=== PATIENT | male | born 1985 | race Caucasian/White ===

== ENCOUNTER 2025-01-19 15:48 | Emergency (ER) | payer OTHER, SELFPAY ==
[2025-01-19 15:49] VITALS: BP 137/85; PULSE 103; RESP 18; TEMP 36.6; O2SAT 100; BMI 26.4
--- NOTE | 2025-01-19 15:53 | ED.RN ---
Pt declines IV in triage, states he has syncopal episodes for IV's and blood draws
[2025-01-19] MEDS: DiphenhydrAMINE 50 MG/ML Syringe IV (16:31)
--- NOTE | 2025-01-19 16:31 | EDS_ITS ---
HPI History of Present Illness Chief Complaint: Allergic Reaction Informant: patient Narrative Narrative: Patient is a 39-year-old male with lifelong history of seasonal allergies who has been receiving allergy shots monthly for years. He had an allergy shot toda y and then developed swelling in the back of his throat. He tried hot tea and cough drops with no relief. It feels like it is affected his breathing mildly. He denies any wheezing. Denies any new medications. States he never had a reaction like this before. Does not take any AMIRAH inhibitor's. Denies any recent illnesses. No other complaints or concerns at this time. Denies any lip swelling, rash, abdominal pain, vomiting or diarrhea [facility] Medical History Asthma Home Medications ?Medication ?Instructions ?Recorded ?Last Taken ?Type epinephrine 0.3 mg/0.3 mL 0.3 mg (0.3 mL) IM Q10M PRN PRN 01/19/25 Unknown Rx injection, auto-injector anaphylaxis #2 ea famotidine 20 mg tablet 20 mg PO BID #14 TABLETS 07/14 Unknown Rx prednisone 20 mg tablet 40 mg (2 x 20 mg) PO DAILY # 10 tabs 01/19/25 Unknown Rx Allergy/AdvReac Type Severity Reaction Status Date / Time Seasonal Allergies: Uncoded Allergy congestion Verified 01/19/25 15:52 (environmental) Social History Smoking Status: Never smoker [facility] ED Constitutional Constitutional ED: Denies chills or fever(s) Eyes Eyes: Denies change in vision ENT ENT ED: Reports sore throat and other Details: sensationb of throat swelling Cardiovascular Cardiovascular: Denies chest pain Respiratory/Chest Respiratory/Chest: Denies cough or dyspnea Gastrointestinal Gastrointestinal: Denies abdominal pain, diarrhea, nausea or vomiting Integumentary Denies rash Neurologic Neurologic: Denies weakness Psychiatric Psychiatric: Denies anxiety Allergic/Immunologic Allergic/Immunologic ED: Reports other Details: Uvular swelling, sensation of throat ; Denies mouth swelling, tongue swelling or urticaria EXAM Physical Exam Const Vital Signs: 01/19/25 15:49 01/19/25 16:59 01/19/25 17:00 Temperature 98 F Temperature Source Oral Pulse Rate 103 H 96 101 H Respiratory Rate 18 16 16 Blood Pressure 137/85 H 125/83 H 121/82 H Blood Pressure Mean 102 97 95 Pulse Ox 100 100 98 Oxygen Delivery Method Room Air Room Air Room Air Positive well nourished and well developed General Appearance ED: well developed and NAD HEENT Reports moist mucous membranes HEENT Narrative: Uvula is midline but edematous. There is edema to the soft palate. Normal tonsils. No drooling. Tongue is normal size. No angioedema of the lips. Eyes PERRL and EOMs intact bilaterally Neck supple Neck Narrative: No stridor Chest Wall inspection of chest normal and palpation of chest normal Resp normal respiratory effort and clear to auscultation bilaterally Auscultation: Negative for rhonchi, wheezes or diminished lung sounds Cardio regular rate and regular rhythm GI normal to inspection, nondistended, normoactive bowel sounds Extremity normal to inspection General Extremety ED: Negative for edema General Extremity: Negative for edema Neuro oriented x3 Sensorium / Orientation: alert Motor Exam: Negative for general weakness Psych mental status grossly normal Mood & Affect: anxious Skin Skin Narrative: Localized area of raised induration of the left forearm with no associated erythema. Consistent with a localized allergic reaction. At the site of his prior injection MDM MDM MDM Narrative Medical decision making narrative: Patient evaluated for sensation of throat swelling after allergy shot today. Differential includes angioedema, clicky's edema, allergic reaction, side effect of allergy shot. On exam patient does have localized edema to the uvula as well as mildly to the soft palate. Otherwise well-appearing with no signs of anaphylaxis. Patient is given IV Solu-Medrol, Pepcid and Benadryl. I do not think he requires epinephrine at this time. After about an hour post medications he is reevaluated. His phonation is improved but he still does have some localized swelling. This time can be discharged home with a course of prednisone. Will also prescribe Pepcid and an EpiPen. Discussed how to use an EpiPen with the patient. Discussed if he does use an EpiPen he needs to call 911 and return to the emergency room immediately. 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 Bauman, who was agreeable with this plan and had no further recommendations. Management Discussion w/another healthcare provider: Program Checker Discharge Plan Triage Chief Complaint: Allergic Reaction ED Provider: Jeni Levy Dx/Rx/DC Orders Clinical Impression: Uvular edema, Allergic reaction to allergen immunotherapy Instructions: ED Allergic Reaction Local Other Prescriptions: New epinephrine 0.3 mg/0.3 mL auto-injector 0.3 mg IM Q10M PRN PRN (Reason: anaphylaxis) Qty: 2 0RF Rx Instructions: do not exceed 3 doses per episode prednisone 20 mg tablet 40 mg PO DAILY Qty: 10 0RF famotidine 20 mg tablet 20 mg PO BID Qty: 14 0RF Primary Care Provider: Scott Pimentel Referrals: Scott Pimentel, [Primary Care Provider] - Activity Restrictions/Additional Instructions: If you develop a difficult time breathing, difficulty swallowing/drooling or further concerns please return to the emergency room. The swelling should go down over the next few hours to few days. Take Benadryl as needed for breakthrough symptoms. Take other medications as prescribed. Print Language: [place]
[2025-01-19] MEDS: Famotidine 200 MG/20 ML MDV 20 MG in 0.9% Normal Saline (Pres. free 8 ML 300 MG IV (16:55)
[2025-01-19 16:59] VITALS: BP 125/83; PULSE 96; RESP 16; O2SAT 100
[2025-01-19 17:00] VITALS: BP 121/82; PULSE 101; RESP 16; O2SAT 98
[2025-01-19 17:39] VITALS: BP 119/83; PULSE 97; RESP 13; TEMP 36.9; O2SAT 100
== END 2025-01-19 17:42 | disposition home or self-care (01) ==
PROVIDERS: Emergency Provider Emergency Medicine; Visit Provider Emergency Medicine
DX: R60.0 Localized edema (principal); T45.1X5A Adverse effect of antineoplastic and immunosuppressive drugs, initial encounter
CPT/HCPCS: 96374; 96375; 99284; A4216